=== PATIENT | female | born 1980 | race Hispanic/Latino ===

== ENCOUNTER 2018-01-07 17:21 | Emergency (ER) | payer BC ==
[2018-01-07 17:46] VITALS: BP 131/79; PULSE 74; RESP 16; TEMP 98.6; O2SAT 99
[2018-01-07 20:17] LABS: BASO # 0.1 K/uL (0.0-0.2); BASO % 1.2 % (0.0-2.0); EOS # 0.2 K/uL (0.0-0.7); HEMOGLOBIN 14.2 g/dL (12.0-16.0); LYMPH # 2.4 K/uL (1.0-4.3); LYMPH % 41.8 % (20.0-40.0); MEAN CORPUSCULAR HEMOGLOBIN 30.4 pg (27.0-31.0); MEAN CORPUSCULAR HGB CONC 33.8 g/dL (33.0-37.0); MEAN PLATELET VOLUME 10.6 fl (7.2-11.7); MONO # 0.5 K/uL (0.0-0.8); MONO % 8.2 % (0.0-10.0); NEUT # 2.6 K/uL (1.8-7.0); NEUT % 45.8 % (50.0-75.0); NRBC % 0.1 % (0.0-0.0); RBC 4.65 Mil/uL (3.80-5.20); RED CELL DISTRIBUTION WIDTH 12.9 % (11.5-14.5); WHITE BLOOD COUNT 5.7 K/uL (4.8-10.8)
[2018-01-07 20:28] LABS: ALB/GLOB RATIO 1.2 (1.0-2.1); ALBUMIN 4.2 g/dL (3.5-5.0); ALT/SGPT 25 U/L (9-52); AST/SGOT 25 U/L (14-36); BLOOD UREA NITROGEN 13 mg/dl (7-17); CALCIUM 9.4 mg/dL (8.4-10.2); GFR NON-AFRICAN AMERICAN > 60
--- NOTE | 2018-01-07 20:35 | ED PDOC ---
HPI: Headache Time Seen by Provider: 01/07/18 17:50 Chief Complaint (Nursing): Headache Chief Complaint (Provider): Headache History Per: Patient History/Exam Limitations: no limitations Onset/Duration Of Symptoms: Days (x3 weeks) Additional Complaint(s): Patient is a 37 y/o female with no significant past medical history who presents to the ED complaining of a headache with associated memory lapse and confusion, onset x3 weeks ago. Patient states that she has taken Aleve and Advil with no relief. She reports that the headache is primarily felt in the back of the head and as a pressure in her eyes. She describes the headache as similar to a "hangover." Patient reports having difficulty focusing and states she feels very confused and has a "heavy fog." She also reports feeling confusion such as walking into a room and not knowing why or what she is doing as well as finding difficulty to find the right words. She denies any significant stressors. she is here with . PMD: None Past Medical History Reviewed: Historical Data, Nursing Documentation, Vital Signs Vital Signs: Last Vital Signs Temp 98.6 F 01/07/18 17:43 Pulse 74 01/07/18 17:43 Resp 16 01/07/18 17:43 BP 131/79 01/07/18 17:43 Pulse Ox 99 01/07/18 17:43 - Medical History PMH: No Chronic Diseases - Surgical History Surgical History: Cholecystectomy (in 1999) - Family History Family History: States: Unknown Family Hx - Social History Current smoker - smoking cessation education provided: No Alcohol: Occasional Drugs: Denies - Allergies Allergies/Adverse Reactions: Allergies Allergy/AdvReac Type Severity Reaction Status Date / Time No Known Allergies Allergy Verified 01/07/18 17:43 Review of Systems ROS Statement: Except As Marked, All Systems Reviewed And Found Negative Neurological: Positive for: Change in Speech, Confusion, Headache Physical Exam - Reviewed Nursing Documentation Reviewed: Yes Vital Signs Reviewed: Yes - Physical Exam Appears: Positive for: Non-toxic (alert and oriented, coherent), No Acute Distress Head Exam: Positive for: ATRAUMATIC, NORMOCEPHALIC Skin: Positive for: Normal Color, Warm, Dry Eye Exam: Positive for: EOMI, Normal appearance, PERRL ENT: Positive for: Normal ENT Inspection Neck: Positive for: Normal Cardiovascular/Chest: Positive for: Regular Rate, Rhythm Respiratory: Positive for: Normal Breath Sounds Gastrointestinal/Abdominal: Positive for: Normal Exam Extremity: Positive for: Normal ROM. Negative for: Pedal Edema, Deformity Neurologic/Psych: Positive for: Alert, word processor operator II-XII (intact), Oriented, Mood/Affect (flat), Cerebellar Tests (intact), Gait (normal). Negative for: Motor/Sensory Deficits, Aphasia, Facial Droop - Laboratory Results Result Diagrams: 01/07/18 20:09 01/07/18 20:09 - ECG O2 Sat by Pulse Oximetry: 99 (RA) Pulse Ox Interpretation: Normal Medical Decision Making Medical Decision Making: Time: 19:11 Impression: Headache for 3 weeks. with normal neuro exam. rule out bleed vs mass Initial Plan: --CT head w/o contrast --CMP --CBC w/ diff Time: 21:30 Reading: [facility] - [facility] CT Head Impression: CT shows no acute or significant parenchymal abnormality. Time: 21:30 pt aware of results. pt aware of lab results, requesting copies instructed pt that although CT and neuro exam normal now, needs further workup with neurologist - mri, labs, pet scan etc. Patient is stable for discharge. ambulates with steady gait, in no distress. airway intact and speaking coherently instructed to return with any worsening symptoms Upon provider reevaluation patient is feeling better, is medically stable, and requires no further treatment in the ED at this time. Patient will be discharged. Counseling was provided and all questions were answered regarding diagnosis and need for follow up with neurologist. There is agreement to discharge plan. Return if symptoms persist or worsen. Scribe Attestation: Documented by Max Gaines, acting as a scribe for Michael Zarate MD Provider Scribe Attestation: All medical record entries made by the Scribe were at my direction and personally dictated by me. I have reviewed the chart and agree that the record accurately reflects my personal performance of the history, physical exam, medical decision making, and the department course for this patient. I have also personally directed, reviewed, and agree with the discharge instructions and disposition. Disposition - Clinical Impression Clinical Impression: Headache - Patient ED Disposition Is Patient to be Admitted: No Counseled Patient/Family Regarding: Studies Performed, Diagnosis, Need For Followup - Disposition Referrals: [facility] [Outside] Haroldo Moon MD [Medical Doctor] - Disposition: Routine/Home Disposition Time: 21:30 Condition: IMPROVED Additional Instructions: follow up with neurologist in 1-2 days return to the ED with any worsening or concerning symptoms Instructions: Headache, Adult (DC) Forms: [facility] (Italian)
--- NOTE | 2018-01-08 08:30 | CT ---
Date of service: 01/07/2018 PROCEDURE: CT HEAD WITHOUT CONTRAST. HISTORY: headache COMPARISON: None available. TECHNIQUE: Axial computed tomography images were obtained through the head/brain without intravenous contrast. Radiation dose: Total exam DLP = mGy-cm. This CT exam was performed using one or more of the following dose reduction techniques: Automated exposure control, adjustment of the mA and/or kV according to patient size, and/or use of iterative reconstruction technique. FINDINGS: HEMORRHAGE: No intracranial hemorrhage. BRAIN: No mass effect or edema. 792.61 VENTRICLES: Unremarkable. No hydrocephalus. CALVARIUM: Unremarkable. PARANASAL SINUSES: Unremarkable as visualized. No significant inflammatory changes. MASTOID AIR CELLS: Unremarkable as visualized. No inflammatory changes. OTHER FINDINGS: None. IMPRESSION: No intracranial mass, hemorrhage or evidence of acute infarct. This report is in concurrence with the preliminary report dictated by [facility] on 01/07/2018 at 8:24 p.m.
== END 2018-01-07 22:50 | disposition home or self-care (01) ==
LOC: H.ER 17:21
DX: R51 Headache (principal); R41.3 Other amnesia
CPT/HCPCS: 70450; 80053; 81025; 82948; 85025; 96374; 99285; J1885